=== PATIENT | female | born 1985 | race Caucasian/White ===

== ENCOUNTER 2019-02-24 16:02 | Emergency (ER) | payer OTHER ==
[~2019-02-24] VITALS: Ht 167.6 cm; Wt 75.0 kg
[~2019-02-24 16:02] MED LIST: AMOXICILLIN500 MG PO; BLEPH-1010 % OD; CELEXA20 M1 PO; GENTAMICIN15 ML/BTL OP; KEFLEX500 M1 PO; ROBITUSSIN AC10 ML PO
[2019-02-24 17:25] VITALS: BP 115/68
[2019-02-24] MEDS ORDERED: KEFLEX500 M1 PO (17:27)
== END 2019-02-24 17:38 | disposition home or self-care (01) ==
LOC: ED 16:02
DX: L03.114 Cellulitis of left upper limb (principal)

== ENCOUNTER 2019-12-02 09:31 | Emergency (ER) | payer OTHER ==
[2019-12-02 10:13] LABS: HEMATOCRIT 40.1 % (37.0-47.0); HEMOGLOBIN 13.9 g/dl (12.0-16.0); IMMATURE GRANULOCYTES 0.2 % (0.0-5.0); MEAN CELL VOLUME 86.6 fL CALC (80.0-100.0); MEAN CORPUSCULAR HGB CONC 34.7 g/dL CAL (32.0-36.0); NEUT# 6.08 thou/uL (2.00-7.15); RED BLOOD COUNT 4.63 mill/uL (4.20-5.60); RED CELL DISTRI WIDTH 12.4 % (11.5-15.5)
[2019-12-02] MEDS ORDERED: LORATADINE10 M1 PO (10:18)
[2019-12-02] MEDS ORDERED: MULTI VIT PO (10:19)
[2019-12-02 10:27] LABS: URINE BILIRUBIN - DIPSTICK NEGATIVE (NEGATIVE); URINE BLOOD DIPSTICK NEGATIVE (NEGATIVE); URINE COLOR YELLOW; URINE GLUCOSE - DIPSTICK NEGATIVE (NEGATIVE); URINE KETONE NEGATIVE (NEGATIVE); URINE LEUK ESTERASE NEGATIVE (NEGATIVE); URINE NITRITE - DIPSTICK NEGATIVE (Negative); URINE PH 7.5 (4.5-8.0); URINE PROTEIN - DIPSTICK NEGATIVE (NEG-TRACE); URINE SPECIFIC GRAVITY 1.015; URINE UROBILINOGEN - DIPSTICK 0.2 E.U./dL (0.2)
[2019-12-02 10:34] LABS: ALBUMIN 4.7 g/dL (3.2-5.0); ALKALINE PHOSPHATASE 51 u/l (38-126); ANION GAP 12 (6-22 (CALC)); BILIRUBIN, TOTAL 0.6 mg/dL (0.0-1.4); BUN 10 mg/dL (7-17); BUN/CREATININE RATIO 14 (12-20 (CALC)); CARBON DIOXIDE 25 mmol/l (22-30); CHLORIDE 106 mmol/l (95-108); CREATININE 0.8 mg/dL (0.5-1.0); GFR > 60 ML/MIN (>=60 (CALC)); GFR FOR AFR.AMER. > 60 ML/MIN (>=60 (CALC)); POTASSIUM 3.9 mmol/l (3.5-5.1); SGOT/AST 46 u/l (14-36); SODIUM 139 mmol/l (137-146)
[2019-12-02] MEDS ORDERED: CYCLOBENZAPR5 MG PO (12:17)
[2019-12-02 12:22] VITALS: BP 107/58
== END 2019-12-02 12:33 | disposition home or self-care (01) ==
LOC: ED 09:31
PROVIDERS: Family Medicine
DX: M62.830 Muscle spasm of back (principal); M54.5 Low back pain; R20.2 Paresthesia of skin

== ENCOUNTER 2020-12-14 10:11 | Emergency (ER) | payer OTHER ==
[~2020-12-14] VITALS: Ht 167.6 cm; Wt 85.0 kg
[~2020-12-14 10:11] MED LIST changes: +CYCLOBENZAPR5 MG PO; +LORATADINE10 M1 PO; +MULTI VIT PO
[2020-12-14 12:05] VITALS: BP 108/60
== END 2020-12-14 12:04 | disposition home or self-care (01) ==
LOC: ED 10:11
DX: M79.604 Pain in right leg (principal); J45.909 Unspecified asthma, uncomplicated; F32.9 Major depressive disorder, single episode, unspecified

== ENCOUNTER 2021-06-28 16:09 | Emergency (ER) | payer OTHER ==
[~2021-06-28] VITALS: Ht 167.6 cm; Wt 160.0 kg
[2021-06-28] MEDS ORDERED: ATIVAN1 MG PO (17:16)
[2021-06-28] MEDS ORDERED: ATIVAN1 M1 PO (17:58)
[2021-06-28 18:54] VITALS: BP 124/61
== END 2021-06-28 18:54 | disposition home or self-care (01) ==
LOC: ED 16:09
DX: Z76.0 Encounter for issue of repeat prescription (principal); F41.9 Anxiety disorder, unspecified; F32.A Depression, unspecified; J45.909 Unspecified asthma, uncomplicated; T42.4X6A Underdosing of benzodiazepines, initial encounter; Z91.128 Patient's intentional underdosing of medication regimen for other reason

== ENCOUNTER 2021-07-26 09:37 | Emergency (ER) | payer OTHER ==
[~2021-07-26] VITALS: Ht 167.6 cm; Wt 80.0 kg
[~2021-07-26 09:37] MED LIST changes: +ATIVAN1 M1 PO; +ATIVAN1 MG PO
[2021-07-26 12:09] LABS: URINE BILIRUBIN - DIPSTICK NEGATIVE (NEGATIVE); URINE BLOOD DIPSTICK LARGE (NEGATIVE); URINE GLUCOSE - DIPSTICK NEGATIVE (NEGATIVE); URINE KETONE 15 mg/dL (NEGATIVE); URINE LEUK ESTERASE NEGATIVE (NEGATIVE); URINE PH 5.5 (4.5-8.0); URINE PROTEIN - DIPSTICK TRACE mg/dL (NEG-TRACE); URINE SPECIFIC GRAVITY >=1.030; URINE UROBILINOGEN - DIPSTICK 0.2 E.U./dL (0.2)
[2021-07-26 12:10] LABS: URINE COLOR BROWN; URINE NITRITE - DIPSTICK NEGATIVE (Negative)
[2021-07-26 12:11] LABS: URINE RBC 25-50 RBC/hpf (0-5)
[2021-07-26 13:12] LABS: HEMATOCRIT 40.3 % (37.0-47.0); HEMOGLOBIN 13.7 g/dl (12.0-16.0); IMMATURE GRANULOCYTES 0.1 % (0.0-5.0); MEAN CELL VOLUME 90.4 fL CALC (80.0-100.0); MEAN CORPUSCULAR HGB 30.7 pG CALC (26.0-32.0); NEUT# 5.66 thou/uL (2.00-7.15); RED BLOOD COUNT 4.46 mill/uL (4.20-5.60); RED CELL DISTRI WIDTH 11.8 % (11.5-15.5)
[2021-07-26 13:26] LABS: ALBUMIN 4.5 g/dL (3.2-5.0); ALKALINE PHOSPHATASE 48 u/l (38-126); ANION GAP 13 (6-22 (CALC)); BILIRUBIN, TOTAL 0.7 mg/dL (0.0-1.4); BUN 12 mg/dL (7-17); BUN/CREATININE RATIO 17 (12-20 (CALC)); CARBON DIOXIDE 23 mmol/l (22-30); CHLORIDE 105 mmol/l (95-108); CREATININE 0.7 mg/dL (0.5-1.0); GFR > 60 ML/MIN (>=60 (CALC)); GFR FOR AFR.AMER. > 60 ML/MIN (>=60 (CALC)); POTASSIUM 3.9 mmol/l (3.5-5.1); SGOT/AST 23 u/l (14-36); SODIUM 138 mmol/l (137-146); TOTAL PROTEIN 7.7 g/dL (6.3-8.2)
[2021-07-26] MEDS ORDERED: OMEPRAZOLE DR40 MG (13:43)
[2021-07-26] MEDS ORDERED: PROVENTIL0.083 % IN (13:44)
[2021-07-26] MEDS ORDERED: FLOVENT HF110 MCG/AC (13:44)
[2021-07-26] MEDS ORDERED: VITAMIN D1000 UNIT PO (13:45)
[2021-07-26] MEDS ORDERED: ALLEGRA ALLERGY60 MG PO (13:45)
[2021-07-26] MEDS ORDERED: VITAMIN B 12250 MCG PO (13:46)
[2021-07-26 16:35] VITALS: BP 101/58
== END 2021-07-26 16:35 | disposition home or self-care (01) ==
LOC: ED 09:37
PROVIDERS: Emergency Medicine
DX: N93.8 Other specified abnormal uterine and vaginal bleeding (principal); F32.A Depression, unspecified; J45.909 Unspecified asthma, uncomplicated

== ENCOUNTER 2022-05-18 08:19 | Observation (INO) | payer OTHER ==
[2022-05-18] VITALS (9 sets, daily range): BP systolic 90–121; BP diastolic 47–71
[~2022-05-18] VITALS: Ht 167.6 cm; Wt 78.2 kg
[~2022-05-18 08:19] MED LIST changes: +ALLEGRA ALLERGY60 MG PO; +FLOVENT HF110 MCG/AC; +OMEPRAZOLE DR40 MG; +PROVENTIL0.083 % IN; +VITAMIN B 12250 MCG PO; +VITAMIN D1000 UNIT PO
--- NOTE | 2022-05-18 08:20 | NUR ---
PATIENT STATES SHE IS HAVING "GOOSE BUMPS" ON LEFT SIDE. PATIENT COMMUNICATES HYPERSENSITIVITY ON THE SAME SIDE,
--- NOTE | 2022-05-18 08:30 | NUR ---
PT TO ROOM VIA WC; STROKE ALERT CALLED AND PT TO CT
[2022-05-18 08:46] LABS: HEMATOCRIT 39.2 % (37.0-47.0); HEMOGLOBIN 13.7 g/dl (12.0-16.0); IMMATURE GRANULOCYTES 0.1 % (0.0-5.0); MEAN CELL VOLUME 87.5 fL CALC (80.0-100.0); MEAN CORPUSCULAR HGB 30.6 pG CALC (26.0-32.0); MEAN CORPUSCULAR HGB CONC 34.9 g/dL CAL (32.0-36.0); NEUT# 5.42 thou/uL (2.00-7.15); RED BLOOD COUNT 4.48 mill/uL (4.20-5.60); RED CELL DISTRI WIDTH 12.4 % (11.5-15.5)
[2022-05-18 08:59] LABS: ALBUMIN 4.5 g/dL (3.2-5.0); ALKALINE PHOSPHATASE 55 u/l (38-126); ANION GAP 15 (6-22 (CALC)); BILIRUBIN, TOTAL 0.5 mg/dL (0.0-1.4); BUN 15 mg/dL (7-17); BUN/CREATININE RATIO 21 (12-20 (CALC)); CARBON DIOXIDE 22 mmol/l (22-30); CHLORIDE 105 mmol/l (95-108); CREATININE 0.7 mg/dL (0.5-1.0); GFR FOR AFR.AMER. > 60 ML/MIN (>=60 (CALC)); GFR OTHER RACES > 60 ML/MIN (>=60 (CALC)); POTASSIUM 3.8 mmol/l (3.5-5.1); SODIUM 138 mmol/l (137-146); TOTAL PROTEIN 7.8 g/dL (6.3-8.2)
[2022-05-18 09:00] LABS: SGOT/AST 52 u/l (14-36)
[2022-05-18 09:14] LABS: INTERNATIONAL NORMALIZED RATIO 0.9 RATIO (0.7-1.3); PROTHROMBIN TIME 9.2 SECONDS (9.0-12.5)
--- NOTE | 2022-05-18 09:14 | NUR ---
PATIENT IN ROOM RESTING IN BED. SWALLOW CHALLENGE PERFORMED WITHOUT DIFFICULT. NO DISTRESS NOTED.
--- NOTE | 2022-05-18 10:01 | NUR ---
Reassessment of patient completed. No distress noted.
[2022-05-18 10:18] LABS: URINE BILIRUBIN - DIPSTICK NEGATIVE (NEGATIVE); URINE BLOOD DIPSTICK LARGE (NEGATIVE); URINE COLOR YELLOW; URINE GLUCOSE - DIPSTICK NEGATIVE (NEGATIVE); URINE KETONE NEGATIVE (NEGATIVE); URINE LEUK ESTERASE NEGATIVE (NEGATIVE); URINE PROTEIN - DIPSTICK NEGATIVE (NEG-TRACE); URINE SPECIFIC GRAVITY <=1.005; URINE UROBILINOGEN - DIPSTICK 0.2 E.U./dL (0.2)
[2022-05-18 10:33] LABS: URINE NITRITE - DIPSTICK NEGATIVE (Negative)
--- NOTE | 2022-05-18 10:35 | NUR ---
BESDIDE SHIFT REPORT GIVEN TO STANISLAW ON MED SURG. PATIENT TO ROOM 276
[2022-05-18 10:43] LABS: URINE SQUAMOUS EPITHELIAL CELL RARE EPI/hpf (0-FEW)
--- NOTE | 2022-05-18 13:17 | NUR ---
RECIEVED FROM ER TO 276 AT 1253. ALERT AND ORIENTED X4. C/O SLIGHT HEADACHE 09/09. AMBULATES INDEPENDENTLY.
--- NOTE | 2022-05-18 13:43 | NUR ---
CURRENTLY IN RADIOLOGY GETTING ECHO.
--- NOTE | 2022-05-18 13:49 | NUR ---
SPEECH PATHOLOGY-- DEBONER ATTEMPTED TO SEE PT. PT CURRENTLY GETTING ECHO. DEBONER TO TRY AGAIN LATER.
--- NOTE | 2022-05-18 14:00 | NUR ---
SIG OTHER AND YOUNG FEMALE AT BEDSIDE.
--- NOTE | 2022-05-18 19:25 | NUR ---
C/O HEADACHE DR ESPINAL MADE AWARE RECIEVED ORDER FOR PRN TYLENOL AND TRAMADOL.
--- NOTE | 2022-05-18 19:55 | NUR ---
PATIENT RESTING IN BED. ALERT AND ABLE TO MAKE NEEDS KNOWN. ASSESSMENT COMPLETE. NO SIGNS OF DISTRESS. PATIENT DID COMPLAIN OF HEAD DISCOMFORT. EXPLAINED TO PATIENT I WAS WAITING FOR HER NEW PAIN MEDICATION ORDERS TO PROCESS WHERE I CAN APPROVE THEM SO I CAN ACCESS IT IN THE [facility] AND WOULD BRING IN SOON IT WAS AVAILABLE.
--- NOTE | 2022-05-18 20:42 | NUR ---
PATIENT RECEIVED PRN TRAMADOL FOR HEAD PAIN. PATIENT TOLERATED WELL.
[2022-05-19 00:16] VITALS: BP 91/48
--- NOTE | 2022-05-19 00:42 | NUR ---
PATIENT REMAINS RESTING IN BED ON HER SIDE. NO COMPLAINTS OF NUMBNESS OR TINGLING. NO COMPLAINTS OF PAIN. BED REMAINS IN LOW POSITION. CALL LIGHT IN REACH.
--- NOTE | 2022-05-19 04:07 | NUR ---
PATIENT REMAINS RESTING IN BED. DENIES NEEDING ANYTHING AT THIS TIME. NO COMPLAINTS OF HEADACHE AT THIS TIME. REMAINS ABLE TO MOVE EXTREMITIES. BED REMAINS IN LOW POSITION. CALL PINA AND BELONGINGS IN REACH.
[2022-05-19 04:10] VITALS: BP 94/48
[2022-05-19 06:34] VITALS: BP 91/41
--- NOTE | 2022-05-19 07:05 | NUR ---
PT RESTING IN ROOM. ASSESSMENT COMPLETED. IV INTACT. TELE MONITOR IN PLACE, CONITNOUS MONITORING PER ED. UPDATED PT ON CURRENT PLAN OF CARE. NIH SCALE PERFORMED. STATES NO OTHER NEEDS AT THIS TIME. FALL/SAFTEY PRECAUTIN IN PLACE, CALL LIGHT WITHIN REACH
[2022-05-19 10:54] VITALS: BP 106/40
[2022-05-19 10:55] VITALS: BP 106/40
--- NOTE | 2022-05-19 12:15 | NUR ---
Patient was missing from room. Apparently left AMA. IV and telemetry box were found on bed. Dr. Arauz and KURTIS Pina were notified.
== END 2022-05-19 12:05 | disposition left against medical advice (07) ==
LOC: ED 08:19 → ED-I 09:50 → ED 09:50 → MS2 10:03
PROVIDERS: Emergency Medicine; ADMIT Internal Medicine; ATTEND Internal Medicine
DX: R20.0 Anesthesia of skin (principal); R53.1 Weakness; F41.9 Anxiety disorder, unspecified; F32.A Depression, unspecified; J45.909 Unspecified asthma, uncomplicated; L40.50 Arthropathic psoriasis, unspecified; F43.10 Post-traumatic stress disorder, unspecified; K21.9 Gastro-esophageal reflux disease without esophagitis; Z86.73 Personal history of transient ischemic attack (TIA), and cerebral infarction without residual deficits
CPT/HCPCS: G0378; J1650; Q9967

== ENCOUNTER 2022-11-07 09:22 | Emergency (ER) | payer OTHER ==
[~2022-11-07] VITALS: Ht 167.6 cm; Wt 90.7 kg
[2022-11-07 09:28] VITALS: BP 140/74
[2022-11-07 09:30] VITALS: BP 139/67
[2022-11-07 10:00] VITALS: BP 117/70
[2022-11-07] MEDS ORDERED: OMNI-PAC300 MG PO (10:18)
[2022-11-07] MEDS ORDERED: OFLOXACIN0.3 % OS (10:18)
[2022-11-07 10:53] VITALS: BP 117/70
[2022-11-08] MEDS ORDERED: TOBREX OPTH5 ML/BTL OS (14:29)
== END 2022-11-07 11:11 | disposition home or self-care (01) ==
LOC: ED 09:22
DX: H00.034 Abscess of left upper eyelid (principal); J45.909 Unspecified asthma, uncomplicated; E66.9 Obesity, unspecified; F32.A Depression, unspecified; Z86.73 Personal history of transient ischemic attack (TIA), and cerebral infarction without residual deficits; N39.46 Mixed incontinence